=== PATIENT | male | born 1970 | race Caucasian/White ===

== ENCOUNTER 2018-05-02 13:29 | Emergency (ER) | payer OTHER ==
[~2018-05-02] VITALS: Ht 182.9 cm; Wt 106.6 kg
[2018-05-02 13:33] VITALS: BP_SYST 136
[2018-05-02] MEDS ORDERED: SODIUM BICARBONATE 8.4% VIAL 50 MEQ/50 ML VIAL INJ ONE (13:45)
[2018-05-02] MEDS ORDERED: LIDOCAINE/EPI 2% 1:100000 20 ML VIAL INJ ONE (13:45)
[2018-05-02] MEDS ORDERED: DIPH-TET-PERTUS Vaccine 0.5 ML VIAL (ADACEL) I.M. ONE (13:45)
[2018-05-02] MEDS ORDERED: BACITRACIN 1 GM OINT TP ONE (14:07)
== END 2018-05-02 14:39 | disposition home or self-care (01) ==
LOC: SED 13:29
DX: S61.412A Laceration without foreign body of left hand, initial encounter (principal); R03.0 Elevated blood-pressure reading, without diagnosis of hypertension; Z86.73 Personal history of transient ischemic attack (TIA), and cerebral infarction without residual deficits; W25.XXXA Contact with sharp glass, initial encounter; Y93.89 Activity, other specified; Y92.89 Other specified places as the place of occurrence of the external cause; Y99.8 Other external cause status
CPT/HCPCS: 90715; 99284